=== PATIENT | female | born 1955 | race Caucasian/White ===

== ENCOUNTER 2016-05-01 20:10 | Inpatient (IN) | payer OTHER ==
[~2016-05-01] VITALS: Ht 149.9 cm; Wt 68.2 kg
--- NOTE | 2016-05-01 22:04 | DIAGNOSTIC IMAGING REPORT ---
PROCEDURE: XR CHEST 1 VIEW INDICATION: SHORTNESS OF BREATH, initial encounter TECHNIQUE: Portable AP view 09:14 p.m. COMPARISON: None. FINDINGS: Lungs are clear. Heart and mediastinum are normal. Thorax is normal. IMPRESSION: 1. Negative chest.
[2016-05-02] VITALS (7 sets, daily range): BP systolic 106–157; BP diastolic 64–118
--- NOTE | 2016-05-02 00:50 | ED NURSING NOTES ---
Clinical Report - Nurses [facility] [address] [place] [address] 05/01/2016 20:10 Patient: HUBERT POTTER TRIAGE Triage time 2014. Acuity: LEVEL 3. Chief Complaint: BIZARRE BEHAVIOR. --20:25 Tigre Basilio R.N. 20:21 05/01/16. BP: 135/93. HR: 90. RR: 18. O2 saturation: 99%. Temp: 98 F. Pain level now 0/10. --20:25 Tigre Basilio R.N. Weight: 64.4 kg. Height/Length: 59 inches. BMI: 28.7. --20:26 Tigre Basilio R.N. Medications Levothyroxine Sodium Oral. --00:52 Tigre Basilio R.N. Zetia Oral. --00:52 Tigre Basilio R.N. Metoprolol Succinate ER Oral. --00:53 Tigre Basilio R.N. Fenofibric Acid Oral. --00:53 Tigre Basilio R.N. Atorvastatin Calcium Oral. --00:53 Tigre Bsailio R.N. Diovan Oral. --00:54 Tigre Basilio R.N. Folic Acid Oral. --00:54 Tigre Basilio R.N. TraZODone HCl Oral. --00:54 Tigre Basilio R.N. Verapamil HCl ER Oral. --00:54 Tigre Basilio R.N. The following entry was struck by Tigre Basilio R.N., 00:51 (05/02/16) Reason - other. <<STRICKEN ENTRY-- Unable to Obtain. --20:18 Tigre Basilio R.N. --END STRIKE>>. Allergies No Known Drug Allergy. --20:18 Tigre Basilio R.N. History Arrived by EMS. Historian: patient. ( [facility] pt's not informed and was heading there to meet her.). Onset: yesterday. ( pt states,"too much family stuff going on, i can't deal with it, too many people leaving too big of a mess, i'm trying to clean up and can't handle it."). She has had anxiety and describes feelings of depression. ( pt crying at bedside. pt states her made her come in r/t pt making noises when breathing.). 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 SOCIAL HX: No infectious disease exposure. FALL RISK ASSESSMENT: Fall risk assessment completed. No fall risk identified. NUTRITIONAL RISK ASSESSMENT: The nutritional risk assessment revealed no deficiencies. FUNCTIONAL ASSESSMENT: Functional assessment: no impairments noted. LEARNING NEEDS ASSESSMENT: The learning needs assessment revealed no barriers. SKIN INTEGRITY ASSESSMENT: Skin integrity risk assessment completed. No skin integrity risk identified. --20:25 Tigre Basilio R.N. PROBLEMS: Hypothyroidism. Hypertension. --20:19 Tigre Basilio R.N. Interventions ID band on patient. --20:25 Tigre Basilio R.N. PHYSICAL ASSESSMENT GENERAL / NEURO / PSYCH: Alert. Oriented X 4. Appears in no acute distress. Speech within normal limits. Affect appears normal. Patient appears calm and cooperative. Good eye contact. Patient appears well-nourished and neat and clean. RESPIRATORY: Respirations not labored. Breath sounds within normal limits. CVS: Normal heart rate and rhythm. Capillary refill less than 2 seconds. GI / : Abdomen soft and nontender. SKIN: Skin intact. Skin is warm and dry. Skin color is within normal limits. --20:26 Tigre Basilio R.N. ( pt has odd affect aeb easily confused by simple questions, ex: how tall are you? answer: "1 no 4 feet." you look taller than 4 feet. "no almost 5 feet," 4' 11"? "yes, that's it"). --20:31 Tigre Basilio R.N. NURSING PROGRESS NOTES Head of bed elevated. Reassurance given. Patient identifiers checked. Call light placed in reach. Side rails up x 2. Bed placed in lowest position. Brakes of bed on. --20:28 Tigre Basilio R.N. EKG time: (2114). EKG was ordered, performed by a tech and shown to the ED physician. --21:16 Dayday Truong, LEAH Public Health Officer Monitoring of patient in place. Patient gowned. Head of bed elevated. Reassurance given. ( at bedside). --21:46 Tigre Basilio R.N. 21:46 05/01/2016 Site #1 started via IV in the right antecubital space with an 18g angiocath, with aseptic technique and good blood return; one attempt. Blood drawn: rainbow set and pediatric tubes. Labeled in the presence of the patient and sent to the lab. Saline lock flushed with saline. --21:46 Tigre Basilio R.N. 22:01 05/01/2016 Started bag #1 1000 mL IV Fluids IV NS (Saline); at 1000 mL/hr over 1 hour(s) via site #1. Allergies verified and confirmed 5 rights. IV patency established. IV site checked: no pain, redness, or swelling. IV flushed thoroughly pre- and post-medication administration. --22:01 Tigre Basilio R.N. 23:11 05/01/2016 IV Fluids IV NS Discontinued: bag #1 completed. Total amount infused: 1000ml mL. IV patency established. IV site checked: no pain, redness, or swelling. IV flushed thoroughly. --23:11 Maricruz Montero R.N. 23:12 05/01/2016 Started bag #1 1000 mL IV Fluids IV NS (Saline); at 250 mL/hr over 4 hour(s) via site #1 via IV pump. Allergies verified and confirmed 5 rights. IV patency established. IV site checked: no pain, redness, or swelling. IV flushed thoroughly pre- and post-medication administration. --23:12 Maricruz Montero R.N. 23:17 05/01/16. The patient reports no complaints and she is calm and resting quietly. GENERAL / NEURO / PSYCH: Alert. Oriented X 4. Patient appears calm and cooperative. Affect appears normal. RESPIRATORY: No respiratory distress. SKIN: Skin is warm and dry. Skin color within normal limits. --23:17 Maricruz Montero R.N. 23:17 05/01/16. BP: 89/62. HR: 83. RR: 18. O2 saturation: 95% on room air. --23:17 Maricruz Montero R.N. 23:20 05/01/16. --23:20 Maricruz Montero R.N. 23:20 05/01/16. BP: 94/64. --23:20 Maricruz Montero R.N. Locked/Released at 05/02/2016 2:29 by Tigre Basilio R.N.
--- NOTE | 2016-05-02 00:50 | ED ORDER SUMMARY ---
..... Patient: HUBERT POTTER OrderSheet [facility] VisitID: [id number] [place] [address] 60y, F Registration Date/Time: 05/01/2016 ORDER SHEET Weight: 64.4 kg Allergies: No Known Drug Allergy GENERAL ORDERS: Chest 1V Urgent (21:04 05/01/2016 PHutchinson DO) (Ack 21:07 [facility] ER Tech1) (21:29 MCampbell) Laboratory Apparatus Glass Blower (Continuous) (21:04 05/01/2016 PHutchinson DO) (21:11 JBullard R.N.) UA-Culture if indicated Urgent (21:05 [facility]01/2016 [facility] (Ack 21:07 [facility] ER Tech1) (21:40 JBullard R.N.) Cardiac Panel Stat (21:05 05/01/2016 PHscchinson DO) (Ack 21:07 [facility] ER Tech1) (21:40 JBullard R.N.) BNP Urgent (21:05 05/01/2016 PHutchinson DO) (Ack 21:07 [facility] ER Tech1) (21:40 JBullard R.N.) Amylase Urgent (21:05 05/01/2016 PHutchinson DO) (Ack 21:07 [facility] ER Tech1) (21:40 JBullard R.N.) TSH Urgent (21:05 05/01/2016 PHutchinson DO) (Ack 21:07 [facility] ER Tech1) (21:40 JBullard R.N.) Ethyl Alcohol Urgent (21:05 05/01/2016 PHutchinson DO) (Ack 21:07 [facility] ER Tech1) (21:40 JBullard R.N.) PT with INR Urgent (21:05 05/01/2016 PHutchinson DO) (Ack 21:07 [facility] ER Tech1) (21:40 JBullard R.N.) Urine Drug Screen Urgent (21:05 05/01/2016 PHutchinson DO) (Ack 21:07 [facility] ER Tech1) (21:40 JBullard R.N.) Ammonia Level Urgent (21:05 05/01/2016 [facility]) (Ack 21:07 NHouse ER Tech1) (21:40 JBullard R.N.) Oxygen (2 L/min) (NC) (21:05 [facility]2016 [facility] (21:11 JBullard R.N.) Pulse oximeter (21:05 05/01/2016 [facility] DO) (21:11 JBkellard R.N.) EKG - ER Stat (21:05 05/01/2016 [facility] DO) (21:15 CHagerty ER Security Dispatcher) Vitals (21:05 05/01/2016 [facility] DO) (21:11 JBullard R.N.) [place] [facility] (21:09 05/01/2016 [facility] DO) (21:40 JBullard R.N.) Lipase Urgent (23:05 05/01/2016 [facility]) (Ack 23:17 Sebastián) (23:26 Gildaard R.N.) CT Abd/Pel w Cont (No) (See report) Urgent (23:37 05/01/2016 [facility]) (Ack 0:56 Sebastián) (1:03 RMcBride) MEDICATION ORDERS: IV FLUIDS: IV NS with Normal Saline 1 Liter, Folic Acid 1 mg/mL, Multivitamin Concentrate Intravenous 1 amp/L, Thiamine HCl 100 mg/L: initial bolus 1000 mL (1000 mL/hr), then 250 mL/hr for X4 (NOW) (21:05 05/01/2016 [facility]) (Ack 21:43 Samuel R.N.) (22:01 Ricardo R.N.) ORDER SHEET NOTES: [Electronically signed by Tigre Basilio R.N. (02:05/02/2016)] [Electronically signed by Cole Hall MD (07:09 05/02/2016)] [Electronically locked/signed by Tigre Basilio R.N. (02:05/02/2016)]
--- NOTE | 2016-05-02 00:50 | ED NURSING NOTES ---
Clinical Report - Nurses [facility] [address] [place] [address] 05/01/2016 20:10 Patient: HUBERT POTTER TRIAGE Triage time 2014. Acuity: LEVEL 3. Chief Complaint: BIZARRE BEHAVIOR. --20:25 Tigre Basilio R.N. 20:21 05/01/16. BP: 135/93. HR: 90. RR: 18. O2 saturation: 99%. Temp: 98 F. Pain level now 0/10. --20:25 Tigre Basilio R.N. Weight: 64.4 kg. Height/Length: 59 inches. BMI: 28.7. --20:26 Tigre Basilio R.N. Medications Levothyroxine Sodium Oral. --00:52 Tigre Basilio R.N. Zetia Oral. --00:52 Tigre Basilio R.N. Metoprolol Succinate ER Oral. --00:53 Tigre Basilio R.N. Fenofibric Acid Oral. --00:53 Tigre Basilio R.N. Atorvastatin Calcium Oral. --00:53 Tigre Basilio R.N. Diovan Oral. --00:54 Tigre Basilio R.N. Folic Acid Oral. --00:54 Tigre Basilio R.N. TraZODone HCl Oral. --00:54 Tigre Basilio R.N. Verapamil HCl ER Oral. --00:54 Tigre Basilio R.N. The following entry was struck by Tigre Basilio R.N., 00:51 (05/02/16) Reason - other. <<STRICKEN ENTRY-- Unable to Obtain. --20:18 Tigre Basilio R.N. --END STRIKE>>. Allergies No Known Drug Allergy. --20:18 Tigre Basilio R.N. History Arrived by EMS. Historian: patient. ( pt diverted from [facility]. pt's not informed and was heading there to meet her.). Onset: yesterday. ( pt states,"too much family stuff going on, i can't deal with it, too many people leaving too big of a mess, i'm trying to clean up and can't handle it."). She has had anxiety and describes feelings of depression. ( pt crying at bedside. pt states her made her come in r/t pt making noises when breathing.). 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 SOCIAL HX: No infectious disease exposure. FALL RISK ASSESSMENT: Fall risk assessment completed. No fall risk identified. NUTRITIONAL RISK ASSESSMENT: The nutritional risk assessment revealed no deficiencies. FUNCTIONAL ASSESSMENT: Functional assessment: no impairments noted. LEARNING NEEDS ASSESSMENT: The learning needs assessment revealed no barriers. SKIN INTEGRITY ASSESSMENT: Skin integrity risk assessment completed. No skin integrity risk identified. --20:25 Tigre Basilio R.N. PROBLEMS: Hypothyroidism. Hypertension. --20:19 Tigre Basilio R.N. Interventions ID band on patient. --20:25 Tigre Basilio R.N. PHYSICAL ASSESSMENT GENERAL / NEURO / PSYCH: Alert. Oriented X 4. Appears in no acute distress. Speech within normal limits. Affect appears normal. Patient appears calm and cooperative. Good eye contact. Patient appears well-nourished and neat and clean. RESPIRATORY: Respirations not labored. Breath sounds within normal limits. CVS: Normal heart rate and rhythm. Capillary refill less than 2 seconds. GI / : Abdomen soft and nontender. SKIN: Skin intact. Skin is warm and dry. Skin color is within normal limits. --20:26 Tigre Basilio R.N. ( pt has odd affect aeb easily confused by simple questions, ex: how tall are you? answer: "1 no 4 feet." you look taller than 4 feet. "no almost 5 feet," 4' 11"? "yes, that's it"). --20:31 Tigre Basilio R.N. NURSING PROGRESS NOTES Head of bed elevated. Reassurance given. Patient identifiers checked. Call light placed in reach. Side rails up x 2. Bed placed in lowest position. Brakes of bed on. --20:28 Tigre Basilio R.N. EKG time: (2114). EKG was ordered, performed by a tech and shown to the ED physician. --21:16 Dayday Truong, LEAH Unix Developer Monitoring of patient in place. Patient gowned. Head of bed elevated. Reassurance given. ( at bedside). --21:46 Tigre Basilio R.N. 21:46 05/01/2016 Site #1 started via IV in the right antecubital space with an 18g angiocath, with aseptic technique and good blood return; one attempt. Blood drawn: rainbow set and pediatric tubes. Labeled in the presence of the patient and sent to the lab. Saline lock flushed with saline. --21:46 Tigre Basilio R.N. 22:01 05/01/2016 Started bag #1 1000 mL IV Fluids IV NS (Saline); at 1000 mL/hr over 1 hour(s) via site #1. Allergies verified and confirmed 5 rights. IV patency established. IV site checked: no pain, redness, or swelling. IV flushed thoroughly pre- and post-medication administration. --22:01 Tigre Basilio R.N. 23:11 05/01/2016 IV Fluids IV NS Discontinued: bag #1 completed. Total amount infused: 1000ml mL. IV patency established. IV site checked: no pain, redness, or swelling. IV flushed thoroughly. --23:11 Maricruz Montero R.N. 23:12 05/01/2016 Started bag #1 1000 mL IV Fluids IV NS (Saline); at 250 mL/hr over 4 hour(s) via site #1 via IV pump. Allergies verified and confirmed 5 rights. IV patency established. IV site checked: no pain, redness, or swelling. IV flushed thoroughly pre- and post-medication administration. --23:12 Maricruz Montero R.N. 23:17 05/01/16. The patient reports no complaints and she is calm and resting quietly. GENERAL / NEURO / PSYCH: Alert. Oriented X 4. Patient appears calm and cooperative. Affect appears normal. RESPIRATORY: No respiratory distress. SKIN: Skin is warm and dry. Skin color within normal limits. --23:17 Maricruz Montero R.N. 23:17 05/01/16. BP: 89/62. HR: 83. RR: 18. O2 saturation: 95% on room air. --23:17 Maricruz Montero R.N. 23:20 05/01/16. --23:20 Maricruz Montero R.N. 23:20 05/01/16. BP: 94/64. --23:20 Maricruz Montero R.N. Locked/Released at 05/02/2016 2:29 by Tigre Basilio R.N.
--- NOTE | 2016-05-02 00:50 | ED ORDER SUMMARY ---
..... Patient: HUBERT POTTER OrderSheet [facility] VisitID: [id number] [place] [address] 60y, F Registration Date/Time: 05/01/2016 ORDER SHEET Weight: 64.4 kg Allergies: No Known Drug Allergy GENERAL ORDERS: Chest 1V Urgent (21:04 05/01/2016 PHutchinson DO) (Ack 21:07 [employer] [facility] ER Tech1) (21:29 MCampbell) Nursing Care Partner (Continuous) (21:04 05/01/2016 PHutchinson DO) (21:11 JBullard R.N.) UA-Culture if indicated Urgent (21:05 05/01/2016 [facility] (Ack 21:07 [employer] ER Tech1) (21:40 JBullard R.N.) Cardiac Panel Stat (21:05 05/01/2016 PHokchinson DO) (Ack 21:07 [employer] ER Tech1) (21:40 JBullard R.N.) BNP Urgent (21:05 05/01/2016 PHutchinson DO) (Ack 21:07 [employer] ER Tech1) (21:40 JBullard R.N.) Amylase Urgent (21:05 05/01/2016 PHutchinson DO) (Ack 21:07 [employer] ER Tech1) (21:40 JBullard R.N.) TSH Urgent (21:05 05/01/2016 PHutchinson DO) (Ack 21:07 [employer] ER Tech1) (21:40 JBullard R.N.) Ethyl Alcohol Urgent (21:05 05/01/2016 PHutchinson DO) (Ack 21:07 [employer] ER Tech1) (21:40 JBullard R.N.) PT with INR Urgent (21:05 05/01/2016 PHutchinson DO) (Ack 21:07 [employer] ER Tech1) (21:40 JBullard R.N.) Urine Drug Screen Urgent (21:05 05/01/2016 PHutchinson DO) (Ack 21:07 [employer] ER Tech1) (21:40 JBullard R.N.) Ammonia Level Urgent (21:05 05/01/2016 [facility]) (Ack 21:07 NHouse ER Tech1) (21:40 JBullard R.N.) Oxygen (2 L/min) (NC) (21:05 [facility]/01/2016 [facility] (21:11 JBullard R.N.) Pulse oximeter (21:05 05/01/2016 [facility] DO) (21:11 JBkellard R.N.) EKG - ER Stat (21:05 05/01/2016 [facility] DO) (21:15 CHagerty ER High School Assistant Football Coach) Vitals (21:05 05/01/2016 [facility] DO) (21:11 JBullard R.N.) Old Records (from [facility]) (21:09 05/01/2016 [facility] DO) (21:40 JBullard R.N.) Lipase Urgent (23:05 05/01/2016 [facility]) (Ack 23:17 Sebastián) (23:26 Gildaard R.N.) CT Abd/Pel w Cont (No) (See report) Urgent (23:37 05/01/2016 [facility]) (Ack 0:56 Sebastián) (1:03 RMcBride) MEDICATION ORDERS: IV FLUIDS: IV NS with Normal Saline 1 Liter, Folic Acid 1 mg/mL, Multivitamin Concentrate Intravenous 1 amp/L, Thiamine HCl 100 mg/L: initial bolus 1000 mL (1000 mL/hr), then 250 mL/hr for X4 (NOW) (21:05 05/01/2016 [facility]) (Ack 21:43 Samuel R.N.) (22:01 Ricardo R.N.) ORDER SHEET NOTES: [Electronically signed by Tigre Basilio R.N. (02:05/02/2016)] [Electronically signed by Cole Hall MD (07:09 05/02/2016)] [Electronically locked/signed by Tigre Basilio R.N. (02:05/02/2016)]
--- NOTE | 2016-05-02 00:50 | ED CLINICAL REPORT ---
Clinical Report - Physicians/Mid Levels [facility] [address] [place] [address] 05/01/2016 20:10 Patient: HUBERT POTTER Time Seen: 21:01. Arrived- By ambulance. Historian- patient and EMS personnel. HISTORY OF PRESENT ILLNESS Chief Complaint: DYSPNEA and WEAKNESS. This started today and is still present. It was gradual in onset and has been waxing/waning. At its maximum, severity described as moderate. When seen in the E.D., severity described as mild. Modifying factors. Not worsened by anything. Not relieved by anything. No headache. She has had fatigue and generalized weakness. (pt states,"too much family stuff going on, i can't deal with it, too many people leaving too big of a mess, i'm trying to clean up and can't handle it."). She has had anxiety and describes feelings of depression. ( pt crying at bedside. pt states her made her come in r/t pt making noises when breathing.). Similar symptoms previously: Recent medical care: Not recently seen/assessed. REVIEW OF SYSTEMS No fever, sore throat, sinus drainage, chest pain or abdominal pain. No nausea, vomiting, diarrhea, black stools or bloody stools. No difficulty with urination, skin rash, back pain, calf pain or headache. The patient has had difficulty breathing, nasal congestion and a cough. She has had difficulty with ambulation. All systems otherwise negative, except as recorded above. PAST HISTORY Hypothyroidism. Hypertension. Medications: Unable to Obtain. Allergies: No Known Drug Allergy. SOCIAL HISTORY Alcohol use. No drug use. Residence: [place]. ADDITIONAL NOTES The nursing notes have been reviewed. PHYSICAL EXAM Vital Signs: 05/01/2016 20:21 BP: 135/93. HR: 90. RR: 18. O2 saturation: 99%. Temp: 98 F. Appearance: No acute distress. (sleeping comfortably, but easily arousable prior to my exam in [facility]). (Strong odor of the metabolic breakdown products of alcohol on her breath). Eyes: Eyes normal inspection. No scleral icterus or pale conjunctivae. ENT: Pharynx normal. No pharyngeal erythema or tonsillar exudate. The mucous membranes are not dry. Neck: Normal inspection. Neck supple. CVS: Heart sounds normal. Pulses normal. Respiratory: No respiratory distress. Breath sounds normal. No decreased air movement, rales, rhonchi, wheezes or prolonged expiration. Abdomen: No visible injury. Soft and nontender. No mass. Back: Normal inspection. Skin: Skin warm and dry. Normal skin color. Normal skin turgor. Extremities: Extremities exhibit normal ROM. No lower extremity edema. Neuro: Oriented X 3. No motor deficit. LABS, X-RAYS, AND EKG EKG: EKG time: (21:15). Normal sinus rhythm. Rate: 95. Normal P waves. Normal KRISTEN. Normal QRS complex. Normal axis. Normal ST and T waves. The study has been interpreted contemporaneously by me. The EKG appears to be a good tracing. Rhythm Strip #1: Normal sinus rhythm. Regular rhythm. Narrow QRS complexes. No ectopy. Chest X-ray: No acute disease. Normal lung markings present. Normal heart size. Mediastinum normal. Great vessels normal. No infiltrate. Views: AP (portable). Technique: good. The X-rays were interpreted contemporaneously by me. Abdominal CT: Fatty liver present. Normal pancreas. No diverticulitis. diverticulosis. The study was interpreted by the radiologist and contemporaneously by me. Laboratory Tests: UA-Culture if indicated: (PAT: 05/01/2016 21:35) ( MsgRcvd 05/01/2016 22:03) Final results Test Result Flag Units (Reference) URINE COLOR YELLOW URINE APPEARANCE CLEAR URINE GLUCOSE NEGATIVE (NEGATIVE) URINE BILIRUBIN NEGATIVE (NEGATIVE) URINE KETONE NEGATIVE (NEGATIVE) URINE SPECIFIC GRAVITY 1.010 (1.010-1.030) URINE PH 5.5 (5.0-8.0) URINE PROTEIN NEGATIVE (NEGATIVE) URINE UROBILINOGEN 0.2 EU/dL (0.2-1.0) URINE NITRITE NEGATIVE (NEGATIVE) URINE BLOOD TRACE-INTACT (NEGATIVE) URINE LEUK ESTERASE TRACE (NEGATIVE) URINE RBC 0-1 rbc/hpf (0-1) URINE WBC 1-3 wbc/hpf (0-1) URINE EPITHELIAL CELLS 3-5 EPI/hpf (0-5) URINE BACTERIA FEW (1+) (NONE SEEN) URINE COMMENT CULTURE INDICATED URINE CULTURES ARE SET-UP BASED ON THE FOLLOWING CRITERIA:POSITIVE NITRITEPOSITIVE LEUKOCYTE ESTERASEGREATER THAN 10 WHITE BLOOD CELLSMODERATE (2+) OR GREATER BACTERIA CBC w Diff: (PAT: 05/01/2016 21:35) ( [facility] 05/01/2016 21:50) Final results Test Result Flag Units (Reference) WHITE BLOOD COUNT 5.0 K/uL (4.5-11.5) RED BLOOD COUNT 4.57 M/uL (4.00-5.20) HEMOGLOBIN 14.2 gm/dL (12.0-16.0) HEMATOCRIT 43.5 % (36.0-46.0) MEAN CELL VOLUME 95 fL (80-100) MEAN CORPUSCULAR HGB 31 pg (26-34) MEAN CORPUSCULAR HGB CONC 33 g/dL (31-37) RED CELL DISTRIBUTION WIDTH 14.3 % (11.6-14.8) PLATELET COUNT 167 K/uL (150-400) NEUTROPHIL % 45.8 L % (50-75) LYMPH % 39.3 % (25-40) MONO % 8.9 % (3-14) EOSINOPHIL % 4.5 H % (0-4) BASOPHIL % 1.5 % (0-2) PT with INR: (PAT: 05/01/2016 21:35) ( [facility] 05/01/2016 21:59) Final results Test Result Flag Units (Reference) INR 1.0 (0.8-1.2) Low Intensity Therapy: INR 1.5-2.0 PT range 18.5-23.1Mod.Intensity Therapy: INR 2.0-3.0 PT range 23.1-31.5High Intensity Therapy: INR 2.5-3.5 PT range 27.4-35.5High Intensity Therapy 2: INR 3.0-4.0 PT range 31.5-39.3 Lipase: (PAT: 05/01/2016 21:35) ( [facility] 05/01/2016 23:31) Final results Test Result Flag Units (Reference) LIPASE 2138 H U/L (73-393) Urine Drug Screen: (PAT: 05/01/2016 21:35) ( [facility] 05/01/[facility] 22:08) Final results Test Result Flag Units (Reference) AMPHETAMINE/METHAMPHETAMINE NEGATIVE (NEGATIVE) BARBITURATE NEGATIVE (NEGATIVE) BENZODIAZEPINE NEGATIVE (NEGATIVE) CANNABINOID NEGATIVE (NEGATIVE) COCAINE NEGATIVE (NEGATIVE) ECSTASY NEGATIVE (NEGATIVE) METHADONE NEGATIVE (NEGATIVE) OPIATE NEGATIVE (NEGATIVE) The urine drug screen is a qualitative screening test fordrug overdose and abuse. All screen results should beconsidered as presumptive.Drugs screened for are as follows:BenzodiazepinesCocaineAmphetamines/MetamphetaminesTHC (Tetrahydrocannabinol)OpiatesBarbituratesEcstasyMethadonePositive results are unconfirmed. For confirmation, notifythe lab for the specimen to be sent to the reference lab.All confirmations must be performed by a differentmethodology.The ingestion of natural herbal and plant productscontaining Ephedra/Ephedra metabolites can produce in urineone or more substances capable of cross reacting withamphetamine/methamphetamine immunoassays. These testsprovide a preliminary result only. A more specificalternative chemical method must be used to obtain aconfirmed analytical result. Ammonia Level: (PAT: 05/01/2016 21:35) ( [facility]/01[facility] 22:03) Final results Test Result Flag Units (Reference) AMMONIA 7 L umol/L (11-32) BNP: (PAT: 05/01/2016 21:35) ( [facility] 05/01/2016 22:08) Final results Test Result Flag Units (Reference) B-TYPE NATRIURETIC PEPTIDE 55.3 pg/ml (5-100) Amylase: (PAT: 05/01/2016 21:35) ( [facility] 05/01/2016 22:51) Final results Test Result Flag Units (Reference) AMYLASE 311 H U/L (25-115) ETHYL ALCOHOL 379 H mg/dL (3-10) THYROID STIMULATING HORMONE 0.201 L uIU/mL (0.30-3.74) CHEM 13 PANEL: (PAT: 05/01/2016 21:35) ( MsgRcvd 05/01/2016 22:07) Final results Test Result Flag Units (Reference) GLUCOSE 142 H mg/dL (70-110) BUN 14 mg/dL (7-18) CREATININE 1.3 mg/dL (0.6-1.3) Estimated GFR 44.41 mL/min Estimated GFR- 53.82 mL/min Note: Persistent reduction over 3 months in eGFR<60 mL/min/1.73 m2 defines CKD. Patients with eGFR values>=60 mL/min/1.73 m2 may also have CKD if evidence ofpersistent proteinuria. Additional information may be foundat www.kidney.org. SODIUM 138 mmol/L (136-145) POTASSIUM 4.1 mmol/L (3.5-5.1) CHLORIDE 100 mmol/L (98-107) CARBON DIOXIDE 22 mmol/L (21-32) CALCIUM 9.8 mg/dL (8.5-10.1) TOTAL PROTEIN 8.9 H g/dL (6.4-8.2) ALBUMIN 4.6 g/dL (3.3-5.0) BILIRUBIN, TOTAL 0.8 mg/dL (0.0-1.0) ALKALINE PHOSPHATASE 42 L U/L (46-116) AST (SGOT) 137 H U/L (15-37) ALT (SGPT) 96 H U/L (12-78) MAGNESIUM 2.0 mg/dL (1.8-2.4) CPK 167 U/L (24-260) TROPONIN I 0.05 ng/mL (0.00-1.5) TROPONIN REFERENCE RANGE:<0.1 NEGATIVE0.1-1.5 INDETERMINANT>1.5 POSITIVE . Pulse Oximetry: 05/01/2016 20:21 O2 saturation: 99%. (FIO2 - room air). Interpretation: normal. PROGRESS AND PROCEDURES Course of Care: Normal Saline 1 liter with thiamine 100mg + folate 1mg + 1 amp MVI IVPB given. 23:06 05/01/16. Care transferred to Dr Hall secondary to change of shift Dr. Salguero and I reviewed the patient's history and I reviewed this with the patient and examined her. My findings were consistent with those noted by Dr. Salguero - MARIAMA. Discussed case with hospitalist, (Brian). Reviewed test results and need for additional work-up. Agreed upon treatment plan, need for patient follow-up and decision to admit. Patient/family counseled. Old medical records ordered. (from [facility]). Disposition: Admitted. Observation. CLINICAL IMPRESSION Acute alcoholic pancreatitis. Alcohol intoxication with delirium. Alcohol intoxication. (Electronically signed by Cole Hall MD 05/02/2016 7:09)
--- NOTE | 2016-05-02 00:50 | ED CLINICAL REPORT ---
Clinical Report - Physicians/Mid Levels [facility] [address] [place] [address] 05/01/2016 20:10 Patient: HUBERT POTTER Time Seen: 21:01. Arrived- By ambulance. Historian- patient and EMS personnel. HISTORY OF PRESENT ILLNESS Chief Complaint: DYSPNEA and WEAKNESS. This started today and is still present. It was gradual in onset and has been waxing/waning. At its maximum, severity described as moderate. When seen in the E.D., severity described as mild. Modifying factors. Not worsened by anything. Not relieved by anything. No headache. She has had fatigue and generalized weakness. (pt states,"too much family stuff going on, i can't deal with it, too many people leaving too big of a mess, i'm trying to clean up and can't handle it."). She has had anxiety and describes feelings of depression. ( pt crying at bedside. pt states her made her come in r/t pt making noises when breathing.). Similar symptoms previously: Recent medical care: Not recently seen/assessed. REVIEW OF SYSTEMS No fever, sore throat, sinus drainage, chest pain or abdominal pain. No nausea, vomiting, diarrhea, black stools or bloody stools. No difficulty with urination, skin rash, back pain, calf pain or headache. The patient has had difficulty breathing, nasal congestion and a cough. She has had difficulty with ambulation. All systems otherwise negative, except as recorded above. PAST HISTORY Hypothyroidism. Hypertension. Medications: Unable to Obtain. Allergies: No Known Drug Allergy. SOCIAL HISTORY Alcohol use. No drug use. Residence: [place]. ADDITIONAL NOTES The nursing notes have been reviewed. PHYSICAL EXAM Vital Signs: 05/01/2016 20:21 BP: 135/93. HR: 90. RR: 18. O2 saturation: 99%. Temp: 98 F. Appearance: No acute distress. (sleeping comfortably, but easily arousable prior to my exam in [facility]). (Strong odor of the metabolic breakdown products of alcohol on her breath). Eyes: Eyes normal inspection. No scleral icterus or pale conjunctivae. ENT: Pharynx normal. No pharyngeal erythema or tonsillar exudate. The mucous membranes are not dry. Neck: Normal inspection. Neck supple. CVS: Heart sounds normal. Pulses normal. Respiratory: No respiratory distress. Breath sounds normal. No decreased air movement, rales, rhonchi, wheezes or prolonged expiration. Abdomen: No visible injury. Soft and nontender. No mass. Back: Normal inspection. Skin: Skin warm and dry. Normal skin color. Normal skin turgor. Extremities: Extremities exhibit normal ROM. No lower extremity edema. Neuro: Oriented X 3. No motor deficit. LABS, X-RAYS, AND EKG EKG: EKG time: (21:15). Normal sinus rhythm. Rate: 95. Normal P waves. Normal KRISTEN. Normal QRS complex. Normal axis. Normal ST and T waves. The study has been interpreted contemporaneously by me. The EKG appears to be a good tracing. Rhythm Strip #1: Normal sinus rhythm. Regular rhythm. Narrow QRS complexes. No ectopy. Chest X-ray: No acute disease. Normal lung markings present. Normal heart size. Mediastinum normal. Great vessels normal. No infiltrate. Views: AP (portable). Technique: good. The X-rays were interpreted contemporaneously by me. Abdominal CT: Fatty liver present. Normal pancreas. No diverticulitis. diverticulosis. The study was interpreted by the radiologist and contemporaneously by me. Laboratory Tests: UA-Culture if indicated: (PAT: 05/01/2016 21:35) ( MsgRcvd 05/01/2016 22:03) Final results Test Result Flag Units (Reference) URINE COLOR YELLOW URINE APPEARANCE CLEAR URINE GLUCOSE NEGATIVE (NEGATIVE) URINE BILIRUBIN NEGATIVE (NEGATIVE) URINE KETONE NEGATIVE (NEGATIVE) URINE SPECIFIC GRAVITY 1.010 (1.010-1.030) URINE PH 5.5 (5.0-8.0) URINE PROTEIN NEGATIVE (NEGATIVE) URINE UROBILINOGEN 0.2 EU/dL (0.2-1.0) URINE NITRITE NEGATIVE (NEGATIVE) URINE BLOOD TRACE-INTACT (NEGATIVE) URINE LEUK ESTERASE TRACE (NEGATIVE) URINE RBC 0-1 rbc/hpf (0-1) URINE WBC 1-3 wbc/hpf (0-1) URINE EPITHELIAL CELLS 3-5 EPI/hpf (0-5) URINE BACTERIA FEW (1+) (NONE SEEN) URINE COMMENT CULTURE INDICATED URINE CULTURES ARE SET-UP BASED ON THE FOLLOWING CRITERIA:POSITIVE NITRITEPOSITIVE LEUKOCYTE ESTERASEGREATER THAN 10 WHITE BLOOD CELLSMODERATE (2+) OR GREATER BACTERIA CBC w Diff: (PAT: 05/01/2016 21:35) ( [facility] 05/01/2016 21:50) Final results Test Result Flag Units (Reference) WHITE BLOOD COUNT 5.0 K/uL (4.5-11.5) RED BLOOD COUNT 4.57 M/uL (4.00-5.20) HEMOGLOBIN 14.2 gm/dL (12.0-16.0) HEMATOCRIT 43.5 % (36.0-46.0) MEAN CELL VOLUME 95 fL (80-100) MEAN CORPUSCULAR HGB 31 pg (26-34) MEAN CORPUSCULAR HGB CONC 33 g/dL (31-37) RED CELL DISTRIBUTION WIDTH 14.3 % (11.6-14.8) PLATELET COUNT 167 K/uL (150-400) NEUTROPHIL % 45.8 L % (50-75) LYMPH % 39.3 % (25-40) MONO % 8.9 % (3-14) EOSINOPHIL % 4.5 H % (0-4) BASOPHIL % 1.5 % (0-2) PT with INR: (PAT: 05/01/2016 21:35) ( [facility] 05/01/2016 21:59) Final results Test Result Flag Units (Reference) INR 1.0 (0.8-1.2) Low Intensity Therapy: INR 1.5-2.0 PT range 18.5-23.1Mod.Intensity Therapy: INR 2.0-3.0 PT range 23.1-31.5High Intensity Therapy: INR 2.5-3.5 PT range 27.4-35.5High Intensity Therapy 2: INR 3.0-4.0 PT range 31.5-39.3 Lipase: (PAT: 05/01/2016 21:35) ( [facility] 05/01/2016 23:31) Final results Test Result Flag Units (Reference) LIPASE 2138 H U/L (73-393) Urine Drug Screen: (PAT: 05/01/2016 21:35) ( [facility] 05/01/2016 22:08) Final results Test Result Flag Units (Reference) AMPHETAMINE/METHAMPHETAMINE NEGATIVE (NEGATIVE) BARBITURATE NEGATIVE (NEGATIVE) BENZODIAZEPINE NEGATIVE (NEGATIVE) CANNABINOID NEGATIVE (NEGATIVE) COCAINE NEGATIVE (NEGATIVE) ECSTASY NEGATIVE (NEGATIVE) METHADONE NEGATIVE (NEGATIVE) OPIATE NEGATIVE (NEGATIVE) The urine drug screen is a qualitative screening test fordrug overdose and abuse. All screen results should beconsidered as presumptive.Drugs screened for are as follows:BenzodiazepinesCocaineAmphetamines/MetamphetaminesTHC (Tetrahydrocannabinol)OpiatesBarbituratesEcstasyMethadonePositive results are unconfirmed. For confirmation, notifythe lab for the specimen to be sent to the reference lab.All confirmations must be performed by a differentmethodology.The ingestion of natural herbal and plant productscontaining Ephedra/Ephedra metabolites can produce in urineone or more substances capable of cross reacting withamphetamine/methamphetamine immunoassays. These testsprovide a preliminary result only. A more specificalternative chemical method must be used to obtain aconfirmed analytical result. Ammonia Level: (PAT: 05/01/2016 21:35) ( [facility] 05/01/2016 22:03) Final results Test Result Flag Units (Reference) AMMONIA 7 L umol/L (11-32) BNP: (PAT: 05/01/2016 21:35) ( [facility] 05/01/2016 22:08) Final results Test Result Flag Units (Reference) B-TYPE NATRIURETIC PEPTIDE 55.3 pg/ml (5-100) Amylase: (PAT: 05/01/2016 21:35) ( [facility] 05/01/2016 22:51) Final results Test Result Flag Units (Reference) AMYLASE 311 H U/L (25-115) ETHYL ALCOHOL 379 H mg/dL (3-10) THYROID STIMULATING HORMONE 0.201 L uIU/mL (0.30-3.74) CHEM 13 PANEL: (PAT: 05/01/2016 21:35) ( MsgRcvd 05/01/2016 22:07) Final results Test Result Flag Units (Reference) GLUCOSE 142 H mg/dL (70-110) BUN 14 mg/dL (7-18) CREATININE 1.3 mg/dL (0.6-1.3) Estimated GFR 44.41 mL/min Estimated GFR- 53.82 mL/min Note: Persistent reduction over 3 months in eGFR<60 mL/min/1.73 m2 defines CKD. Patients with eGFR values>=60 mL/min/1.73 m2 may also have CKD if evidence ofpersistent proteinuria. Additional information may be foundat www.kidney.org. SODIUM 138 mmol/L (136-145) POTASSIUM 4.1 mmol/L (3.5-5.1) CHLORIDE 100 mmol/L (98-107) CARBON DIOXIDE 22 mmol/L (21-32) CALCIUM 9.8 mg/dL (8.5-10.1) TOTAL PROTEIN 8.9 H g/dL (6.4-8.2) ALBUMIN 4.6 g/dL (3.3-5.0) BILIRUBIN, TOTAL 0.8 mg/dL (0.0-1.0) ALKALINE PHOSPHATASE 42 L U/L (46-116) AST (SGOT) 137 H U/L (15-37) ALT (SGPT) 96 H U/L (12-78) MAGNESIUM 2.0 mg/dL (1.8-2.4) CPK 167 U/L (24-260) TROPONIN I 0.05 ng/mL (0.00-1.5) TROPONIN REFERENCE RANGE:<0.1 NEGATIVE0.1-1.5 INDETERMINANT>1.5 POSITIVE . Pulse Oximetry: 05/01/2016 20:21 O2 saturation: 99%. (FIO2 - room air). Interpretation: normal. PROGRESS AND PROCEDURES Course of Care: Normal Saline 1 liter with thiamine 100mg + folate 1mg + 1 amp MVI IVPB given. 23:06 05/01/16. Care transferred to Dr Hall secondary to change of shift Dr. Salguero and I reviewed the patient's history and I reviewed this with the patient and examined her. My findings were consistent with those noted by Dr. Salguero - MARIAMA. Discussed case with hospitalist, (Brian). Reviewed test results and need for additional work-up. Agreed upon treatment plan, need for patient follow-up and decision to admit. Patient/family counseled. Old medical records ordered. (from [facility] Disposition: Admitted. Observation. CLINICAL IMPRESSION Acute alcoholic pancreatitis. Alcohol intoxication with delirium. Alcohol intoxication. (Electronically signed by Cole Hall MD 05/02/2016 7:09)
--- NOTE | 2016-05-02 04:03 | NUR ---
Patient arrived on floor from ED via stretcher around 0240. Ambulated from hallway to bed with 1 person assist due to shakiness. , Rashel present. Pt has [employer] running.
--- NOTE | 2016-05-02 07:10 | ED MAR SUMMARY ---
..... Medication Administration Record [facility] [address] [place] [address] Patient: HUBERT POTTER Visit ID: [id number] 60y, F Weight: 64.4 kg Height/Length: 59 in BMI: 28.7 ALLERGIES: No Known Drug Allergy Start 22:01 05/01/2016 Tigre Basilio R.N., Stop 23:11 05/01/2016 Maricruz Montero R.N. Medication Administered: IV NS (SALINE), Dose: IV Fluids over 1 hour(s), Rate: 1000 mL/hr, Dispensed: 1000 mL bag, Site: #1 right AC. Medication Ordered: IV NS with Normal Saline 1 Liter, Folic Acid 1 mg/mL, Multivitamin Concentrate Intravenous 1 amp/L, Thiamine HCl 100 mg/L: initial bolus 1000 mL (1000 mL/hr), then 250 mL/hr for X4 (NOW). Start 23:12 05/01/2016 Maricruz Montero R.N. Medication Administered: IV NS (SALINE), Dose: IV Fluids over 4 hour(s), Rate: 250 mL/hr, Dispensed: 1000 mL bag, Site: #1 right AC. Medication Ordered: IV NS with Normal Saline 1 Liter, Folic Acid 1 mg/mL, Multivitamin Concentrate Intravenous 1 amp/L, Thiamine HCl 100 mg/L: initial bolus 1000 mL (1000 mL/hr), then 250 mL/hr for X4 (NOW).
--- NOTE | 2016-05-02 07:10 | ED MED RECONCILIATION SUMMARY ---
Patient: HUBERT POTTER Medication Reconciliation Report [facility] VisitID: [id number] [address] [place] [address] 60y, F Registration Date/Time: 05/01/2016 Weight: 64.4 kg Height/Length: 59 in. BMI: 28.7 ALLERGIES: No Known Drug Allergy The patient's Home Medications are listed below: THE FOLLOWING MEDICATIONS NEED TO BE RECONCILED: Atorvastatin Calcium Oral Diovan Oral Fenofibric Acid Oral Folic Acid Oral Levothyroxine Sodium Oral Metoprolol Succinate ER Oral TraZODone HCl Oral Verapamil HCl ER Oral Zetia Oral The source(s) of the original Home Medication information: Not obtained. The following Medications were given to the patient in the Emergency Department: IV NS IV Fluids bolus 0, then 1000 mL/hr, administered: 05/01/2016 10:01:00 PM IV NS IV Fluids bolus 0, then 250 mL/hr, administered: 05/01/2016 11:12:00 PM The following Medications were prescribed to the patient: None.
--- NOTE | 2016-05-02 07:10 | ED MAR SUMMARY ---
..... Medication Administration Record [facility] [address] [place] [address] Patient: HUBERT POTTER Visit ID: [id number] 60y, F Weight: 64.4 kg Height/Length: 59 in BMI: 28.7 ALLERGIES: No Known Drug Allergy Start 22:01 05/01/2016 Tigre Basilio R.N., Stop 23:11 05/01/2016 Maricruz Montero R.N. Medication Administered: IV NS (SALINE), Dose: IV Fluids over 1 hour(s), Rate: 1000 mL/hr, Dispensed: 1000 mL bag, Site: #1 right AC. Medication Ordered: IV NS with Normal Saline 1 Liter, Folic Acid 1 mg/mL, Multivitamin Concentrate Intravenous 1 amp/L, Thiamine HCl 100 mg/L: initial bolus 1000 mL (1000 mL/hr), then 250 mL/hr for X4 (NOW). Start 23:12 05/01/2016 Maricruz Montero R.N. Medication Administered: IV NS (SALINE), Dose: IV Fluids over 4 hour(s), Rate: 250 mL/hr, Dispensed: 1000 mL bag, Site: #1 right AC. Medication Ordered: IV NS with Normal Saline 1 Liter, Folic Acid 1 mg/mL, Multivitamin Concentrate Intravenous 1 amp/L, Thiamine HCl 100 mg/L: initial bolus 1000 mL (1000 mL/hr), then 250 mL/hr for X4 (NOW).
--- NOTE | 2016-05-02 07:10 | ED MED RECONCILIATION SUMMARY ---
Patient: HUBERT POTTER Medication Reconciliation Report [facility] VisitID: [id number] [address] [place] [address] 60y, F Registration Date/Time: 05/01/2016 Weight: 64.4 kg Height/Length: 59 in. BMI: 28.7 ALLERGIES: No Known Drug Allergy The patient's Home Medications are listed below: THE FOLLOWING MEDICATIONS NEED TO BE RECONCILED: Atorvastatin Calcium Oral Diovan Oral Fenofibric Acid Oral Folic Acid Oral Levothyroxine Sodium Oral Metoprolol Succinate ER Oral TraZODone HCl Oral Verapamil HCl ER Oral Zetia Oral The source(s) of the original Home Medication information: Not obtained. The following Medications were given to the patient in the Emergency Department: IV NS IV Fluids bolus 0, then 1000 mL/hr, administered: 05/01/2016 10:01:00 PM IV NS IV Fluids bolus 0, then 250 mL/hr, administered: 05/01/2016 11:12:00 PM The following Medications were prescribed to the patient: None.
--- NOTE | 2016-05-02 07:10 | ED DISCHARGE INSTRUCTIONS ---
Patient: HUBERT POTTER General Instructions [facility] VisitID: [id number] [place] [address] 60y, F Registration Date/Time: 05/01/2016 Acute alcoholic pancreatitis. Alcohol intoxication with delirium. Alcohol intoxication. ADDITIONAL INFORMATION Alcohol Intoxication Alcohol intoxication occurs when you drink alcohol faster than your liver can remove it from your system. Alcohol intoxication affects your judgment and coordination. Very high blood alcohol levels can cause coma, very slow breathing and even . If you drink alcohol every day, this may gradually cause permanent damage to your liver, brain, heart, pancreas and other organs. Alcohol use during may cause permanent damage to the growing baby. Home Care: Do not drink any more alcohol. DO NOT DRIVE until all effects of the alcohol have worn off. Get lots of rest over the next few days. Drink plenty of water and other non-alcoholic liquids. Try to eat regular meals. If you have been drinking heavily on a daily basis, you may go through alcohol withdrawl. This is also called the shakes or DTs. The usual symptoms last 3 to 4 days and may include nervousness, shakiness, nausea, sweating or sleeplessness. During this time, it is best that you stay with family or friends who can help and support you. You can also admit yourself to a residential detox program. If your symptoms are severe, contact your doctor for medicines to help. Follow Up: If alcohol is causing a problem in your life, these and other organizations can help you: Alcoholics Anonymous offers support through a self-help fellowship. There are no dues or fees. See the Yellow Pages and call for time and place of meetings. www.aa.org Al-Anon offers support to families of alcohol users. 652.502.9253 www.al-anon.org National [place] On Alcoholism And Drug Dependence 830-191-4020 www.ncadd.org There are also inpatient or residential alcohol detox programs. Check the Internet or phonebook Yellow Pages under Drug Abuse & Treatment Centers. Get Prompt Medical Attention if any of the following occur: there) You have been given the following additional information: Alcohol Intoxication (Electronically signed by Cole Hall MD 05/02/2016 7:09)
--- NOTE | 2016-05-02 07:10 | ED DISCHARGE INSTRUCTIONS ---
Patient: HUBERT POTTER General Instructions [facility] VisitID: [id number] [place] [address] 60y, F Registration Date/Time: 05/01/2016 Acute alcoholic pancreatitis. Alcohol intoxication with delirium. Alcohol intoxication. ADDITIONAL INFORMATION Alcohol Intoxication Alcohol intoxication occurs when you drink alcohol faster than your liver can remove it from your system. Alcohol intoxication affects your judgment and coordination. Very high blood alcohol levels can cause coma, very slow breathing and even . If you drink alcohol every day, this may gradually cause permanent damage to your liver, brain, heart, pancreas and other organs. Alcohol use during may cause permanent damage to the growing baby. Home Care: Do not drink any more alcohol. DO NOT DRIVE until all effects of the alcohol have worn off. Get lots of rest over the next few days. Drink plenty of water and other non-alcoholic liquids. Try to eat regular meals. If you have been drinking heavily on a daily basis, you may go through alcohol withdrawl. This is also called the shakes or DTs. The usual symptoms last 3 to 4 days and may include nervousness, shakiness, nausea, sweating or sleeplessness. During this time, it is best that you stay with family or friends who can help and support you. You can also admit yourself to a residential detox program. If your symptoms are severe, contact your doctor for medicines to help. Follow Up: If alcohol is causing a problem in your life, these and other organizations can help you: Alcoholics Anonymous offers support through a self-help fellowship. There are no dues or fees. See the Yellow Pages and call for time and place of meetings. www.aa.org Al-Anon offers support to families of alcohol users. 467.653.5983 www.al-anon.org National [place] On Alcoholism And Drug Dependence 795-371-9026 www.ncadd.org There are also inpatient or residential alcohol detox programs. Check the Internet or phonebook Yellow Pages under Drug Abuse & Treatment Centers. Get Prompt Medical Attention if any of the following occur: there) You have been given the following additional information: Alcohol Intoxication (Electronically signed by Cole Hall MD 05/02/2016 7:09)
--- NOTE | 2016-05-02 08:02 | DIAGNOSTIC IMAGING REPORT ---
PROCEDURE: CT ABD/PELVIS WITH CONTRAST INDICATION: Elevated pancreatic enzymes. TECHNIQUE: 125 ml of Isovue 300 were injected intravenously and axial images were obtained of the entire abdomen and pelvis with sagittal and coronal reformations. Preliminary report provided by Kandis Vickers MD ([facility]). COMPARISON: None. FINDINGS: ABDOMEN: Pancreas appears normal. There is marked fatty infiltration of the liver. Gallbladder, spleen, and kidneys are normal. Moderate calcified atheromatous changes of the abdominal aorta. Mild diverticulosis of the descending colon. Bowel pattern is otherwise normal, including appendix. Mild generative change of the lumbar spine PELVIS: Mild sigmoid diverticulosis. Moderate distention of the urinary bladder. Uterus and adnexal structures are normal. No evidence of free fluid. IMPRESSION: 1. Normal pancreas. 2. Marked fatty infiltration of the liver. 3. Mild diverticulosis of the descending and sigmoid colons. 4. Moderate distention of the urinary bladder. All CT scans at this facility use dose modulation, iterative reconstruction, and/or weight-based dosing when appropriate to reduce radiation dose to as low as reasonably achievable.
--- NOTE | 2016-05-02 09:39 | NUR ---
PATIENT AMBULATORY TO [facility] X [facility] AT THIS TIME. HANDS SHAKY, STATES LAST DRINK WAS 05/01 EVENING AND SHE HAD A FEW GLASSES OF WINE. SEE SHIFT ASSESSMENT FOR FURTHER DETAILS.
--- NOTE | 2016-05-02 11:54 | HISTORY AND PHYSICAL ---
ADMITTED: 05/02/2016 HISTORY OF PRESENT ILLNESS: The patient is a 60-year-old woman who came in the emergency room late last night for evaluation of shortness of breath problems and some weakness and emotional lability. She seemed to be making strange noises when she was sleeping and breathing. Her woke her up and felt she should come in for evaluation. She did not really have any problems with nausea, vomiting, or abdominal pain. Through the course of her evaluation in the emergency department, she was found not to have any real major breathing difficulties. She did have significantly elevated blood alcohol level and evidence of pancreatitis. She was, therefore, recommended for admission to cover for alcohol withdrawal and to keep on fluids and bowel rest to see if the pancreatic enzymes will come down with conservative treatment. She has not had other major problems or symptoms. MEDICAL/SURGICAL HISTORY: Past medical history: Remarkable for hypertension and hypothyroidism. Past surgical history is negative. She has had 2 normal pregnancies and deliveries. MEDICATIONS: 1. Include levothyroxine. 2. Zetia. 3. Fenofibric acid. 4. Atorvastatin. 5. Diovan. 6. Folic acid. 7. Trazodone. 8. Verapamil. It is not clear how many of these the patient is taking and what the doses are and her is planning to be contacted to fill in the doses. ALLERGIES: 1. 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 She is a nonsmoker. She does drink alcohol in the form of wine, which she says she has several glasses every evening as she is cooking dinner. She does have quite a bit of stress due to family issues. FAMILY HISTORY: Remarkable for a mother who is age 90 and alive and well. The patient's father around age 82. She is not really sure of the cause. The patient has a sister who had breast cancer that was successfully treated and is doing well. REVIEW OF SYSTEMS: HEENT: Has been okay. Respiratory has been remarkable for some obstructive breathing sounds, this is probably related to alcohol. Cardiovascular: Okay with no chest pain or heart issues. Gastrointestinal is okay symptomatically with no major nausea, vomiting, diarrhea, or blood in stools. Genitourinary: Okay with no problems passing urine. The patient does have regular Pap smears and regular mammograms. She had her last thorough exam in 01/2016. Gastrointestinal is okay. Genitourinary is okay. Musculoskeletal is okay with no bone or joint problems. Neurologic: Remarkable for some shakiness. Psychiatric: Remarkable for this patient being quite depressed about the of her son at age 23 and of a stepson at age 27 and problems her oldest son has developed with pain medication addiction and heroin use. She does have a stepdaughter who is doing okay. She also reports to the emergency department doctors that she was very stressed about keeping up with housework and cleaning and straightening things up when no one else seems to be willing to help with this. PHYSICAL EXAMINATION: GENERAL: Reveals the patient to be somewhat overweight woman appearing to be of her stated age. She is in no distress and is easily arousable. She is speaking clearly. She is somewhat shaky. VITAL SIGNS: Temperature is 98. Blood pressure is 120/73. Pulse is 83. Respiratory rate is 16. Oxygen saturation 96%. HEENT: Head is normal. Ear canals and tympanic membranes are normal. Eyes show pupils equal, round, and reactive to light. Nose and throat are clear. NECK: Supple without significant adenopathy. CHEST: Clear to auscultation and percussion. HEART: Reveals normal S1 and S2 with no murmur. There is no axillary adenopathy. BREASTS: Not examined. ABDOMEN: Somewhat obese. Abdomen is nondistended and shows no significant tenderness to palpation. Bowel tones are normal. PELVIC AND RECTAL: Not done. EXTREMITIES: Normal with no significant edema. Peripheral pulses are normal. NEUROLOGIC: Reveals the patient to be alert and oriented x3. Cranial nerves are normal. Motor and sensory exams are normal. Deep reflexes are symmetric. LAB/IMAGING: Laboratory studies show hemoglobin 14.2, hematocrit 43.5, white blood cell count 5000, PT/INR is 1.0. Sodium is 138, potassium 4.1, chloride 100, CO2 22, glucose 142, creatinine 1.3, BUN 14, SGOT is 137, SGPT is 96, total bilirubin is 0.8. Alcohol level was 379 mg percent. Amylase is 311, lipase is 2131. Chest x-ray is normal. Abdominal and pelvis CT scan shows fatty infiltration of the liver, normal appearance of the pancreas and normal gallbladder, spleen and kidneys. There is some mild diverticulosis of the descending colon, but otherwise okay. Chest x-ray is normal. IMPRESSION: 1. The patient is presenting with evidence of alcohol abuse and some respiratory depression secondary to this causing breathing problems at night, most likely. She also has pancreatitis induced by alcohol most likely. 2. Other problems include hypertension, hypothyroidism, history of some chronic renal insufficiency and depression. PLAN: The patient will be continued n.p.o. except for ice chips and sips of liquids. She will be started on lorazepam to cover for withdrawal on the alcohol withdrawal protocol. Amylase and lipase will be repeated this evening to see if they are coming down and repeated tomorrow morning. She will be referred for counseling regarding alcohol problems if she wishes to take advantage of this.
--- NOTE | 2016-05-02 15:04 | NUR ---
PATIENT C/O DIZZINESS. ORTHOSTATICS CHECKED AND NEGATIVE. LORAZEPAN 1 MG PO GIVEN FOR TREMORS/SHAKY HANDS. SCORED A 4 AND A 5 DURING THIS SHIFT.
--- NOTE | 2016-05-02 15:21 | NUR ---
NUTRITION NOTE: Pt admitted with dx/o ETOH, UTI, pancreatitis. Pt with hx/o HTN and hypothyroidism. ETOH protocol in place including PNV and Thiamin (vit B1). Pt is on clear liquids (sips) and ice chips small amounts. RD to follow up with complete assessment per protocol.
--- NOTE | 2016-05-02 21:32 | NUR ---
PT RESTING IN BED, VISITING WITH SON. NO DISTRESS NOTED. PT ALERT AND ORIENED, COOPERATIVE WITH CARE. PT ABLE TO MAKE NEEDS KNOWN, FOLLOWS COMMANDS, MAKES EYE CONTACT. MOLD UPPER EXTREMITY TREMORS NOTED. VSS. PT DENIES ANY CHEST PAIN, SOB, NAUSEA, AND VOMITING. PT DENIES HAVING ANY PAIN/ ABD PAIN. PT EDUCATED ON DX, AND SYMPTOMS TO REPORT, CALL LIGHT FUNCTIONS. BED IN LOWEST POSITION, CALL LIGHT IN REACH, WCTM
[2016-05-03 04:24] VITALS: BP 150/86
[2016-05-03 07:02] VITALS: BP 144/77
--- NOTE | 2016-05-03 10:27 | NUR ---
NUTRITION ASSESSMENT: S: Pt admitted with ETOH, UTI, pancreatitis. See RD screen. Pt continues NPO 2/2 pancreatitis except sips of liquids and ice chips. O: Diet Rx: NPO NKFA Wts: 67.6 kg Ht: 59" IBW: 54-60 kg %IBW: 117% BMI: 30.4 Est Kcals: ~7101-1150 kcals per day Est Pro: ~60-70 g per day Est Fluids: ~1.7 L per day Meds Incl: Mag, PNV, Thiamin, desyrel, see eMar for complete list. Labs Incl: (05/03) glucose 81, BUN 7, Creat 0.9, Na+ 140, K+ 3.5, mag 1.3, Ca+ 7.8, lipase 654, amylase 141, hct 33.0, HGB 10.5, MCV 97, MCH 31, albumin (05/01) albumin 4.6 Skin: Shaggy Score 23; no open areas noted or reported Accuchecks: 80-108 A: Pt continues NPO. Rec advance diet when medically appropriate. Lipase appears to be trending down, anticipate diet advancement soon.. RD to follow up and monitor oral nutrition progress prn/protocol. P: Advance diet when medically appropriate.
[2016-05-03 10:59] VITALS: BP 136/72
[2016-05-03] MEDS ORDERED: ZETIA10 MG PO (11:31)
[2016-05-03] MEDS ORDERED: LEVOTHYROXINE100 MCG PO (11:31)
[2016-05-03] MEDS ORDERED: METOPROLOL SUCC25 MG PO (11:32)
[2016-05-03] MEDS ORDERED: ATORVASTATIN CA40 MG PO (11:33)
[2016-05-03] MEDS ORDERED: FIBRICOR105 MG (11:33)
[2016-05-03] MEDS ORDERED: DIOVAN160 MG PO (11:33)
[2016-05-03] MEDS ORDERED: TRAZODONE HCL50 MG PO ×2 (11:34→13:15)
[2016-05-03] MEDS ORDERED: CALAN SR180 MG PO (11:34)
[2016-05-03] MEDS ORDERED: MULTIPLE VITAMIN PO (11:34)
[2016-05-03] MEDS ORDERED: FOLIC ACID1 MG PO (11:34)
[2016-05-03] MEDS ORDERED: VITAMIN C500 M1 PO (11:34)
[2016-05-03] MEDS ORDERED: FISH OIL (11:35)
[2016-05-03] MEDS ORDERED: COQ-1050 MG (11:35)
--- NOTE | 2016-05-03 12:53 | Progress Note ---
Subjective General Pt states she is feeling much better. She states her abdominal pain has nearly resolved. She denies any nausea or vomiting. Pt states her shaking and alcohol withdrawal seem to be improved also. Physical Exam Vital Signs / I&Os Vital Signs Date Time Temp Pulse Resp B/P Pulse O2 O2 Flow FiO2 Ox Delivery Rate 05/03 1059 98.4 73 20 136/72 96 Room Air 0.0 05/03 0908 96 05/03 0702 98.2 79 22 144/77 97 Room Air 0.0 05/03 0424 98.2 77 16 150/86 96 Room Air 05/02 2239 98.1 83 16 123/68 97 Room Air 0.0 05/02 2108 Room Air 0.0 05/02 1834 97.7 118 16 106/82 97 Room Air 0.0 05/02 1458 98.1 90 16 136/98 97 Room Air 05/02 1400 98.4 129 16 157/98 97 Room Air 05/02 1400 98.4 93 16 143/89 98 Room Air I&O 05/03 0000 05/02 1600 05/02 0800 Intake Total 3449 400 1074 Output Total 850 1450 300 Balance 2599 -1050 774 Other GENERAL: NAD; Pt laying comfortably in bed NECK: Supple; No cervical LAD appreciated CARDIAC: RRR, No M/R/G appreciated PULM: Clear to auscultation bilaterally ABD: Soft, NT, ND, Positive BS in all quadrants; No hepatosplenomegaly appreciated EXT: No C/C/E in bilateral upper and lower extremity; No calve tenderness bilaterally SKIN: Warm, dry, pink, and intact NEURO: Alert and oriented x3; Following all commands PSYCH: Normal mood and affect LAB Results Laboratory Tests 05/03 05/02 0605 1800 Chemistry Plasma Sodium (136 - 145 mmol/L) 140 Plasma Potassium (3.5 - 5.1 mmol/L) 3.5 Plasma Chloride (98 - 107 mmol/L) 109 CO2 (Enzymatic) (21 - 32 mmol/L) 22 BUN (7 - 18 mg/dL) 7 Creatinine (0.6 - 1.3 mg/dL) 0.9 Est GFR ( Amer) (mL/min) >60 Est GFR (Non-Af Amer) (mL/min) >60 Glucose (70 - 110 mg/dL) 81 Plasma Calcium (8.5 - 10.1 mg/dL) 7.8 Plasma Magnesium (1.8 - 2.4 mg/dL) 1.3 Amylase (25 - 115 U/L) 141 193 Lipase (73 - 393 U/L) 654 1012 Hematology WBC (4.5 - 11.5 K/uL) 3.4 RBC (4.00 - 5.20 M/uL) 3.42 Hgb (12.0 - 16.0 gm/dL) 10.5 Hct (36.0 - 46.0 %) 33.0 MCV (80 - 100 fL) 97 MCH (26 - 34 pg) 31 RDW (11.6 - 14.8 %) 14.8 Neut % (Auto) (50 - 75 %) 61.0 Lymph % (Auto) (25 - 40 %) 21.4 [place] % (Auto) (3 - 14 %) 11.0 Eos % (Auto) (0 - 4 %) 5.1 Baso % (Auto) (0 - 2 %) 1.5 Plt Count, EDTA (150 - 400 K/uL) 101 PUBS MCHC (31 - 37 g/dL) [address] ABD/PELVIS WITH CONTRAST INDICATION: Elevated pancreatic enzymes. TECHNIQUE: 125 ml of Isovue 300 were injected intravenously and axial images were obtained of the entire abdomen and pelvis with sagittal and coronal reformations. Preliminary report provided by Kandis Vickers MD ([facility]). COMPARISON: None. FINDINGS: ABDOMEN: Pancreas appears normal. There is marked fatty infiltration of the liver. Gallbladder, spleen, and kidneys are normal. Moderate calcified atheromatous changes of the abdominal aorta. Mild diverticulosis of the descending colon. Bowel pattern is otherwise normal, including appendix. Mild generative change of the lumbar spine PELVIS: Mild sigmoid diverticulosis. Moderate distention of the urinary bladder. Uterus and adnexal structures are normal. No evidence of free fluid. IMPRESSION: 1. Normal pancreas. 2. Marked fatty infiltration of the liver. 3. Mild diverticulosis of the descending and sigmoid colons. 4. Moderate distention of the urinary bladder. Assessment and Plan Problem List 1. Pancreatitis, alcoholic, acute Plan - Improving - Will advance diet as tolerated today - Recheck Lipase level in AM - CT of the abdomen revealed a normal looking pancreas - Continue IV Normal Saline at 200 mL/hour for now - Continue IV Dialudid PRN for severe pain 2. Alcohol withdrawal Plan - Pt continues to withdraw from alcohol - Continue Alcohol withdrawal protocol with PRN Diazepam - Continue daily vitamin supplementation 3. Essential hypertension Plan - Well controlled - Continue home medications 4. Hypothyroidism Plan - Continue daily Synthroid
[2016-05-03 14:49] VITALS: BP 151/93; BP 156/102
--- NOTE | 2016-05-03 15:30 | NUR ---
PATIENT AMBULATING IN ROOM W/O PROBLEMS INDEPENDENTLY. LESS TREMORS IN HANDS TODAY THAN YESTERDAY. SCORING 4 ON THE ETOH PROTOCOL THIS MORNING. CALLED AND CLARIFIED PATIENTS MEDICATIONS. ATIVAN GIVEN X 1 TODAY FOR TREMORS IN HANDS/SHAKINESS.
--- NOTE | 2016-05-03 15:41 | NUR ---
ORDERS FROM MD TO ADVANCE DIET TOLERATED. MECHANICAL SOFT DIET AT THIS TIME PATIENT WOULD LIKE TO TRY SOFT FOODS. NO NAUSEA OR VOMITING AT THIS TIME OR DURING ADMISSION.
[2016-05-03 18:39] VITALS: BP 152/90
[2016-05-03 22:49] VITALS: BP 162/94
[2016-05-04 02:23] VITALS: BP 147/77
--- NOTE | 2016-05-04 03:15 | NUR ---
Pt states feeling better today. Only mild tremor noted on hands while resting in bed. Once she walks, however, her tremor becomes very visible. Pt has been scoring low on ETOH withdrawal throughout the shift and has not had ativan since around 1800 and ileana well. Will cont to monitor.
[2016-05-04 07:13] VITALS: BP 137/76
--- NOTE | 2016-05-04 07:57 | NUR ---
PATIENT UP IN ROOM AMBULATING INDEPENDENTLY. HANDS SLIGHTLY TREMOROUS. PLEASANT AND COOPERATIVE. LABS CAME BACK AND LIPASE STILL ELEVATED. SEE SHIFT ASSESSMENT FOR FURTHER DETAILS.
--- NOTE | 2016-05-04 08:38 | NUR ---
NUTRITION NOTE: NUTRIITON FOLLOW-UP NOTE Follow-up note to RD assessment on 05/03. Diet adv. to reg, mech. soft. thin consistency x 1 day-current diet medically appropriate secondary to dx/o pancreatitis and is easier for pt to digest. Per pt report; had a BM x 1 yesterday. Also tolerated 1/2 egg salad sandwich, cream of mushroom soup, and oranges. Provided rsd with nutrition education on low fiber foods-gradually increasing to higher fiber foods over 2-4 wks. Nutrition Education: Discussed with rsd the importance of avoiding high fiber foods for the next 2-4 wks r/t causing less stress on GI tract and consuming lower fiber foods (white breads, cooked vegetables, fruits without skins, and then adv. to high fiber diet-pt verb. understanding. Plan: 1.)Adv. diet as medically appropriate-tolerate diet adv. 2.)Meet est. energy needs of ~<75% of diet. 3.)Aim for low fiber foods for next 2-4 wks, gradually increasing to higher fiber diet. Nutrition indices to f/u prn/protocol.
[2016-05-04 10:46] VITALS: BP 127/81
[2016-05-04 14:18] VITALS: BP 136/76
--- NOTE | 2016-05-04 16:34 | NUR ---
PT AWAKE, RESTING IN BED, WATCHING TV, SPOUSE AT BEDSIDE. INTRODUCED SELF, UPDATED WHITEBOARD, DISCUSSED POC, COMPLETED ASSESSMENT. PT STATES SHE IS FEELING GOOD, ASKING ABOUT THE POSSIBILITY OF GOING HOME. INFORMED HER MD WOULD BE BY TO SEE PT TO DISCUSS FURTHER PLAN OF CARE.
--- NOTE | 2016-05-04 23:10 | NUR ---
END SHIFT NOTE: PT STABLE, VSS, AFEBRILE, AMBULATORY WITH MINIMAL ASSISTANCE, HEP LOCKED IV AFTER PT RECEIVED 2G OF MAG THIS EVENING. PT ALSO RECEIVED PO K+ TONIGHT FOR REPLACEMENT. PT COOPERATIVE, SCORING LOW ON THE ETOH SCALE, PROTOCOL STILL NOT INITIATED. AFEBRILE, A/O, MINOR TREMORS NOTED. PT ANXIOUS TO GET HOME, LABS ORDERED FOR AM. WCTM.
[2016-05-05 00:59] VITALS: BP 165/86
[2016-05-05 03:00] VITALS: BP 153/76
--- NOTE | 2016-05-05 05:17 | NUR ---
Pt slept well through the shift. Low score for ETOH withdrawal, no tremors noted. Up to bathroom indendently. VSS on room air. No complaints of pain or n/v. No other issues at this time. WCTM.
[2016-05-05 07:01] VITALS: BP 187/82
[2016-05-05 10:44] VITALS: BP 142/93
--- NOTE | 2016-05-05 11:49 | Provider's Discharge Care Plan ---
Problem, Goal, Plan Problem List 1. Pancreatitis, alcoholic, acute Goals: Improve disease control Instructions: Stop alcohol. Avoid meats and fats for 2 weeks. 2. Alcohol withdrawal Goals: Improved health/wellness Instructions: Stop alcohol 3. Essential hypertension Goals: Improved health/wellness Instructions: Take meds as directed 4. Hypothyroidism Goals: Improve disease control Instructions: Take meds as directed
--- NOTE | 2016-05-05 13:16 | NUR ---
PATIENT STABLE THIS SHIFT AND DISCHARGED FOR HOME AT 1200.
--- NOTE | 2016-05-05 13:56 | DISCHARGE SUMMARY ---
ADMIT DATE: 05/02/2016 DISCHARGE DATE: 05/05/2016 ADMITTING DIAGNOSES: 1. Pancreatitis 2. Alcohol abuse 3. Hypertension 4. Hypothyroidism 5. Depression 6. Chronic renal insufficiency DISCHARGE DIAGNOSES: 1. Pancreatitis 2. Alcohol abuse 3. Hypertension 4. Hypothyroidism 5. Depression 6. Chronic renal insufficiency BRIEF HISTORY: A 60-year-old female presented to the emergency department with shortness of breath, weakness and emotional lability. Lab testing showed elevated blood alcohol and elevated lipase, consistent with pancreatitis. The patient was therefore admitted for management of pancreatitis. CT of the abdomen was essentially normal, but a markedly elevated lipase was noted. HOSPITAL COURSE: During the hospital stay, the patient was treated with IV hydration and monitoring. She had steadily improving symptomatology. On the day of discharge, vital signs are stable. She was able to ambulate, tolerating oral intake without difficulty, as her diet was gradually titrated. She did have a somewhat low white blood cell count of 3.8 and a mild anemia with hemoglobin 11.9 and a platelet count of 99, all of which are consistent with possible marrow suppression from alcohol. DISPOSITION: Home. DISCHARGE MEDICATIONS/INSTRUCTIONS: The patient was instructed to continue medications as prior to admission, including: levothyroxine 100 mcg p.o. daily. Zetia 10 mg p.o. daily. Metoprolol 25 mg p.o. b.i.d. Fenofibric acid 105 mg p.o. daily. Atorvastatin 40 mg p.o. daily. Valsartan 160 mg p.o. daily. Folic acid 1 mg daily. Verapamil 180 mg daily. Multivitamin 1 p.o. daily. Ascorbic acid 500 mg daily. [place]-3 fatty acids daily. Coenzyme Q10, 50 mg daily. Trazodone 50 mg 1/2 tablet every night at bedtime p.r.n. insomnia. Special instructions: Alcohol cessation recommended. Counseled the patient and regarding this. Follow up with primary physician in 2 weeks for repeat laboratory testing. Advised diet low in meats and fats for the next 2 weeks.
== END 2016-05-05 12:45 | disposition home or self-care (01) | DRG 439 ==
LOC: ED SRH 20:10 → TRANS SRH 05-02 01:29 → ACUTE2 SRH 05-02 02:41
PROVIDERS: ADMIT Emergency Medicine
DX: K85.20 Alcohol induced acute pancreatitis without necrosis or infection (principal); F10.239 Alcohol dependence with withdrawal, unspecified; Y90.8 Blood alcohol level of 240 mg/100 ml or more; G93.89 Other specified disorders of brain; I12.9 Hypertensive chronic kidney disease with stage 1 through stage 4 chronic kidney disease, or unspecified chronic kidney disease; N18.9 Chronic kidney disease, unspecified; E03.9 Hypothyroidism, unspecified; F32.9 Major depressive disorder, single episode, unspecified
CPT/HCPCS: 29230; 29246; 90004; 90047; 90074; 90098; 90100; 90469; 90616; 90627; 91320; 91588; 92010; 92235; 92530; 92610; 92668; 92670; 92720; 92760; 92761; 92762; 92763; 92764; 92765; 92766; 92767; 93140; 94060; 95059